=== PATIENT | male | born 1965 | race Caucasian/White ===

== ENCOUNTER 2024-10-14 16:40 | Emergency (ER) | payer OTHER, SELFPAY ==
[2024-10-14 16:42] VITALS: BP 133/85
[2024-10-14 17:04] LABS: Hematocrit 46.1 % (39.0-52.0); Hemoglobin 16.1 g/dL (13.0-18.0); Mean Corp Hgb Conc. 34.9 g/dL (33.0-37.0); Mean Corpuscular Volume 86.2 fL (80.0-94.0); Nucleated Red Blood Cells % 0 % (-); Platelet Count 212 10^3/uL (130-400); Red Cell Dist. Width 13.0 % (11.5-14.5)
[2024-10-14 17:32] LABS: Troponin I < 0.012 ng/ml
[2024-10-14 17:35] LABS: ALT (SGPT) 40 U/L (0-50); AST (SGOT) 31 U/L (17-59); Albumin 4.6 g/dl (3.5-5.0); Alkaline Phosphatase 69 U/L (38-126); Blood Urea Nitrogen 17 mg/dl (9-20); Calcium 9.6 mg/dl (8.4-10.2); Carbon Dioxide 28 mmol/L (22-30); Chloride 106 mmol/L (98-107); Glucose 120 mg/dl (70-99); Potassium 4.4 mmol/L (3.5-5.1); Sodium 140 mmol/L (135-145); Total Protein 7.8 g/dl (6.3-8.2); eGFR > 60.00
--- NOTE | 2024-10-14 19:17 | ED.GENMED ---
History of Present Illness
General
Chief Complaint: Fainting/Passed Out
Source: patient
Exam Limitations: none
Time Seen by Provider: 10/14/24 18:55
History of Present Illness
History of Present Illness:
See MDM
Past History
Past History
ED Past Medical History: Seizures; Negative Asthma, HTN, Hypercholesterolemia or NIDDM
ED Past Surgical History: Orthopedic (Wrist surgery) and Other (Robotic hernia)
Social History
Tobacco: Non-smoker
Alcohol: Occasional (Rare alcohol use)
Drug: None
Personal:
Living: with family
Employment: Employed
Family History
Family History: Other (Noncontributory)
Phy Exam
Physical Exam
Physical Exam:
See MDM
Course
Orders/Labs/Results
Orders:
Orders
10/14/24 16:41
Electrocardiogram (*1) Urgent
Reason for Study: Chest Pain
EKG- Treatment ONCE
Pulse Ox/spot Check [RESP] Urgent
Quantity: 1
Special Instructions: ON ROOM AIR
10/14/24 16:58
Complete Blood Count/With Diff Urgent
Comprehensive Metabolic Panel Urgent
Troponin I Urgent
Abnormal Lab Results
10/14/24
16:58
Glucose 120 H mg/dl
(70-99)
10/14/24 16:58
10/14/24 16:58
Vital Signs
Initial and Last Documented VS:
Initial Vital Signs
Temp Pulse Resp BP Pulse Ox
97.6 F 71 20 133/85 97
10/14/24 16:42 10/14/24 16:42 10/14/24 16:42 10/14/24 16:42 10/14/24 16:42
Last Documented Vital Signs
Temp Pulse Resp BP Pulse Ox
97.6 F 71 20 133/85 97
10/14/24 16:42 10/14/24 16:42 10/14/24 16:42 10/14/24 16:42 10/14/24 19:20
MDM/Problems Addressed
Differential Diagnosis Includes:
Note:
CHIEF COMPLAINT(S)
Lightheadedness and dizziness following a venous insufficiency treatment injection.
HISTORY OF PRESENT ILLNESS
The patient is a 58-year-old male with a history of venous insufficiency who presented with lightheadedness and dizziness after receiving a lidocaine injection. The occurrence began around 9:00 AM after receiving the injection for venous
insufficiency. The patients symptoms included feeling lightheaded, queasy, and uneasy, which was accompanied by a sense of fatigue and heaviness throughout the afternoon. These sensations were initiated shortly after the injection and after sitting
in the office for approximately an hour, these began to improve slightly. He reports similar symptoms related to low blood sugar in prior incidents, stating �if Im low blood sugar like that, I get freezing.� The patient also reported that he
experienced slight headache at the time but no headaches recently. After going home, he discussed the case with his PCP who suggested ER evaluation if symptoms are persistent. Given that he still felt 'off', he came to the emergency department.
However, patient states he started feeling better in the emergency department without intervention.
ADDITIONAL HISTORY OBTAINED FROM SOURCES OTHER THAN THE PATIENT
- According to EMS, the patient appeared lightheaded and dizzy, but there were no indications of seizure activity. The patients spouse expressed concerns about potential dehydration due to a bike ride undertaken before the procedure.
EXTERNAL RECORDS REVIEWED
An EKG show normal results. Blood work performed revealed no significant abnormalities.
SOCIAL DETERMINANTS AFFECTING HEALTH
The patient reports dehydration potentially related to a bike ride completed earlier in the day before his procedure.
REVIEW OF SYSTEMS
- Constitutional: Complained of fatigue and heaviness throughout the afternoon.
- Neurological: Reported feeling lightheaded and slightly queasy, but no room-spinning dizziness. Slight headache noted historically, not acute.
- Cardiovascular: Lightheadedness, no chest pain or palpitation.
- Ear, Nose, and Tongue (Vision related): No new visual disturbances or ear issues.
PHYSICAL EXAM
General: Alert, no acute distress.
Skin: Warm, dry.
Head: Normocephalic, atraumatic.
Neck: Supple, trachea midline.
Eyes, Ears, Nose, Mouth, and Throat: Oral mucosa moist.
Cardiovascular: Normal peripheral perfusion, No edema. No murmur auscultated
Respiratory: Respirations are non-labored.
Gastrointestinal: Abdomen nondistended.
Musculoskeletal: Normal range of motion, normal strength.
Neurological: Alert and oriented to person, place, time, and situation, No focal neurological deficit observed.
Psychiatric: Cooperative, appropriate mood and affect.
PROBLEM LIST
Acute Problems:
- Lightheadedness and dizziness post-procedure
- Suspected dehydration
PLAN
- Advise patient to maintain adequate hydration, especially before and after any procedures.
- Recommend follow-up with primary care physician to discuss potential further evaluation such as a Holter monitor if symptoms persist.
- Provide reassurances regarding the likelihood of vasovagal reaction based on clinical evaluation and history.
- Recommendation for continued discussion with treating neurologist as the seizure activity has not been recent or relevant to this episode.
DIFFERENTIAL DIAGNOSIS
The Differential Diagnosis includes, in no particular order and is not limited to:
- Vasovagal syncope
- Dehydration
- Hypoglycemia
- Orthostatic hypotension
- Cardiac arrhythmia
- Anxiety-related reaction
- Mild electrolyte imbalance
- Reaction to injected medication or potential lytocaine sensitivity
- Inner ear dysfunction or vestibular disorder
- Anemia
EKG
My independent EKG interpretation is:
- Rhythm: Sinus rhythm
- [place]: Normal
- No STEMI
Disposition:
SUMMARY OF ENCOUNTER
The patient, a 58-year-old male, was seen in the emergency department due to lightheadedness and dizziness following a venous insufficiency treatment injection. The patients spouse was present and suggested that his symptoms could be related to
dehydration, as he had gone on a bike ride before his vascular appointment. We discussed the symptoms, noting that they are likely not cardiac-related since there was no chest pain or shortness of breath with exertion. The patient mentioned that his
vascular surgeon was concerned about the need for neurology clearance due to a history of seizures. However, his seizures have been well controlled, and I do not believe the current symptoms are seizure-related. We discussed the possibility of an
irregular heart rate and the use of an outpatient Holter monitor, concluding that his symptoms are more consistent with a vasovagal reaction.
DISPOSITION
Discharge.
PLAN
Advise the patient to maintain adequate hydration before and after procedures. Recommend follow-up with the primary care physician to discuss further evaluation with a Holter monitor if symptoms persist. Provide reassurances about the symptoms
likely being a vasovagal reaction.
and patient stating that the surgeon wants neurologic clearance before trying to do the procedure again. I did discuss that his symptoms were likely vasovagal. They both understand that I am not a neurologist. From my medical standpoint and
after hearing the story and evaluating the patient, it does not appear to be a seizure but they both know that I cannot prove this. It is my opinion that he can have the procedure done but again, I am not a neurologist. They both understand that
and are asking me to voice my opinion on the discharge paperwork so they can bring this to their vascular surgeon.
MEDICATION RECONCILIATION
No medications were prescribed or administered during the visit.
MEDICAL DECISION MAKING
- Chronic conditions affecting care: Seizure disorder, venous insufficiency.
- Differential Diagnosis: Vasovagal syncope, dehydration, hypoglycemia, orthostatic hypotension, cardiac arrhythmia, anxiety-related reaction, mild electrolyte imbalance, reaction to injected medication, inner ear dysfunction, anemia.
- Data:
- Category 2: Input from the patients spouse on potential dehydration.
- Risk: Consideration of Admission/Observation: Escalation of care including admission/observation was considered given the complexity and risk of the patients presenting complaint and exam findings. However, ultimately I feel the patient is safe
for outpatient management with close follow-up. Reasoning: Work-up reassuring, does not reveal any acute life/organ-threatening processes, patients symptoms well controlled upon reevaluation, reexamination is reassuring, vitals are stable, patient
agreeable with discharge, reliable for follow-up.
DIAGNOSIS
- Dizziness (R42)
- Suspected Vasovagal Syncope (R55)
- Dehydration (E86.0)
*Pulse Oximetry
SaO2: 97
Oxygen Mode of Delivery: Room air
Patient hypoxic: no
*Critical Care Note
Total Time (30-74mins, 75-104mins- exclusive of procedures): Not Applicable
ED Attending Note
-
Portions of this chart may have been created with voice recognition software.� Occasional wrong word or��sound alike� substitutions may have occurred due to the inherent limitations of voice recognition software.
Discharge Plan
Departure
Patient Disposition: Home (Routine Discharge)
Date of Disposition: 10/14/24
Time of Disposition: 19:17
Patient with high blood pressure during this ER visit?: No
Discharge Problem:
Syncope
Instructions: Syncope (Fainting) (DC)
Prescriptions:
No Action
levetiracetam 250 MG tablet
750 mg PO HS
cholecalciferol (vitamin D3) 1,000 UNITS tablet
1,000 units PO DAILY
acetaminophen 325 MG tablet
650 mg PO Q4HPRN PRN (Reason: mild pain) Qty: 1 0RF
doxycycline monohydrate 100 mg Capsule
100 mg PO BID
promethazine-codeine 6.25-10 mg/5 mL syrup
5 ml PO Q4H PRN (Reason: cough) Qty: 118 0RF
Activity Restrictions/Additional Instructions:
Please return for any worsening symptoms.
You may return at any time if you have further concerns.
Please follow up with your doctor at the first available appointment, preferably this week.
From a syncope standpoint, your symptoms appear to be more related to something called vasovagal. After our discussion and hearing the story, I do not believe that your symptoms are seizure related. Since this does not appear to be seizure
related, I do believe you can still have your procedure performed from a neurological standpoint.
Thank you for choosing [facility].
Interventions
Interventions:
*Risk Screen - Suicide Last Done: 10/14/24 16:42
*General Assessment Last Done: 10/14/24 16:42
Discharge Date and Time
Print Language: MALAY
[2024-10-14 20:09] VITALS: BP 141/82
== END 2024-10-14 20:11 | disposition home or self-care (01) ==
LOC: EMR 16:40
PROVIDERS: Emergency Medicine; EMERGENCY PHYSICIAN Student in an Organized Health Care Education/Training Program
DX: R55 Syncope and collapse (principal); E86.0 Dehydration; R56.9 Unspecified convulsions; Z98.890 Other specified postprocedural states; Z88.0 Allergy status to penicillin; Z88.2 Allergy status to sulfonamides; Z88.5 Allergy status to narcotic agent; Z91.010 Allergy to peanuts
CPT/HCPCS: 99283; 80053; 84484; 85025; 93005